=== PATIENT | male | born 1980 | race Caucasian/White ===

== ENCOUNTER 2020-09-05 11:47 | Emergency (ER) | payer OTHER ==
[~2020-09-05] VITALS: Ht 185.4 cm; Wt 129.3 kg
[2020-09-05] MEDS ORDERED: LISINOPRIL2.5 MG PO (12:32)
[2020-09-05] MEDS ORDERED: OMEPRAZOLE 20 M20 M1 PO (12:32)
[2020-09-05] MEDS ORDERED: CLARITIN10 MG PO (12:33)
[2020-09-05 12:58] LABS: INFLUENZA A ANTIGEN Negative (Negative); INFLUENZA B ANTIGEN Negative (Negative)
[2020-09-05] MEDS ORDERED: DOXYCYCLINE 10100 M2 PO (13:45)
[2020-09-05 14:03] VITALS: BP 148/72
== END 2020-09-05 14:05 | disposition home or self-care (01) ==
LOC: M.ERS 11:47
PROVIDERS: Nurse Practitioner Family
DX: J18.9 Pneumonia, unspecified organism (principal); Z20.828 Contact with and (suspected) exposure to other viral communicable diseases; B34.9 Viral infection, unspecified; I10 Essential (primary) hypertension; K21.9 Gastro-esophageal reflux disease without esophagitis; E11.9 Type 2 diabetes mellitus without complications; Z88.1 Allergy status to other antibiotic agents; Z79.899 Other long term (current) drug therapy